=== PATIENT | male | born 1985 | race Hispanic/Latino ===

== ENCOUNTER 2016-09-08 19:58 | Emergency (ER) | payer OTHER ==
[~2016-09-08] VITALS: Ht 172.7 cm; Wt 72.6 kg
[2016-09-08] MEDS ORDERED: ALBU90AE13 INH (20:26)
[2016-09-08] MEDS ORDERED: [UNRECOGNIZED DRUG - CODE] OR (20:27)
[2016-09-08] MEDS ORDERED: ZITHROMAX500 MG OR (20:27)
[2016-09-08] MEDS ORDERED: CREON24000 UNT OR (20:28)
[2016-09-08] MEDS ORDERED: FLONASE AL50 MCG/ACT (20:28)
[2016-09-08] MEDS ORDERED: ALLERGY10 MG PO (20:29)
[2016-09-08] MEDS ORDERED: [UNRECOGNIZED DRUG - OTHER] (20:29)
[2016-09-08] MEDS ORDERED: OMEPRAZOLE40 MG OR (20:30)
[2016-09-08] MEDS ORDERED: TOBI PODHALER28 MG IN (20:31)
== END 2016-09-08 22:10 | disposition home or self-care (01) ==
LOC: ED 19:58
PROC: 0HQLXZZ Repair Left Lower Leg Skin, External Approach (ICD-10-PCS; principal; 2016-09-08)
DX: S81.852A Open bite, left lower leg, initial encounter (principal); W54.0XXA Bitten by dog, initial encounter; Y92.488 Other paved roadways as the place of occurrence of the external cause
CPT/HCPCS: 90715; 99283

== ENCOUNTER 2018-06-19 06:55 | Outpatient (CLI) | payer OTHER ==
[~2018-06-19 06:55] MED LIST: ALBU90AE13 INH; ALLERGY10 MG PO; CREON24000 UNT OR; FLONASE AL50 MCG/ACT; OMEPRAZOLE40 MG OR; TOBI PODHALER28 MG IN; ZITHROMAX500 MG OR; [UNRECOGNIZED DRUG - CODE] OR; [UNRECOGNIZED DRUG - OTHER]
[2018-06-19 10:00] LABS: PLATELET COUNT 147 K/uL (142-355)
[2018-06-19 10:20] LABS: POTASSIUM 4.3 mmol/L (3.6-5.2)
== END 2018-06-19 22:42 | disposition home or self-care (01) ==
LOC: LABW 06:55
DX: E84.0 Cystic fibrosis with pulmonary manifestations (principal)
CPT/HCPCS: 36415; 80053; 82306; 82785; 82951; 82952; 84134; 84443; 84446; 84590; 85027; 85610; 86140

== ENCOUNTER 2018-08-28 12:57 | Outpatient (CLI) | payer OTHER ==
[2018-08-28 13:23] LABS: PLATELET COUNT 184 K/uL (142-355)
[2018-08-28 13:39] LABS: POTASSIUM 4.3 mmol/L (3.6-5.2)
== END 2018-08-28 21:41 | disposition home or self-care (01) ==
LOC: LAB 12:57
PROVIDERS: Internal Medicine Pulmonary Disease
DX: Z79.2 Long term (current) use of antibiotics (principal)
CPT/HCPCS: 80053; 80202; 85027

== ENCOUNTER 2019-01-29 09:59 | Outpatient (CLI) | payer OTHER ==
[2019-01-29 10:26] LABS: PLATELET COUNT 161 K/uL (142-355)
[2019-01-29 10:31] LABS: POTASSIUM 4.3 mmol/L (3.6-5.2)
== END 2019-01-29 20:13 | disposition home or self-care (01) ==
LOC: LAB 09:59
PROVIDERS: Internal Medicine Pulmonary Disease
DX: E84.0 Cystic fibrosis with pulmonary manifestations (principal)
CPT/HCPCS: 80048; 80200; 80202; 85027

== ENCOUNTER 2020-02-22 07:07 | Outpatient (CLI) | payer OTHER ==
[2020-02-22 08:22] LABS: POTASSIUM 4.6 mmol/L (3.6-5.2)
== END 2020-02-22 23:59 | disposition home or self-care (01) ==
LOC: LABW 07:07
PROVIDERS: ATTEND Internal Medicine Pulmonary Disease
DX: E84.9 Cystic fibrosis, unspecified (principal)
CPT/HCPCS: 36415; 80053; 82728; 83540; 83550

== ENCOUNTER 2020-07-01 10:21 | Outpatient (CLI) | payer OTHER | END 2020-07-01 22:05 | disposition home or self-care (01) | LOC: RAD 10:21 | PROVIDERS: ATTEND Internal Medicine Pulmonary Disease | DX: R10.9 Unspecified abdominal pain (principal) ==

== ENCOUNTER 2020-07-02 15:08 | Outpatient (CLI) | payer OTHER ==
[2020-07-02 15:33] LABS: PLATELET COUNT 160 K/uL (142-355)
[2020-07-02 15:43] LABS: POTASSIUM 4.1 mmol/L (3.6-5.2)
== END 2020-07-02 20:33 | disposition home or self-care (01) ==
LOC: LABW 15:08
PROVIDERS: ATTEND Internal Medicine Pulmonary Disease
DX: E84.9 Cystic fibrosis, unspecified (principal)
CPT/HCPCS: 36415; 80053; 82150; 83690; 85027

== ENCOUNTER 2021-03-27 10:02 | Outpatient (CLI) | payer OTHER | END 2021-03-27 20:02 | disposition home or self-care (01) | LOC: LABW 10:02 | PROVIDERS: ATTEND Internal Medicine Pulmonary Disease | DX: E84.9 Cystic fibrosis, unspecified (principal) | CPT/HCPCS: 36415; 80076 ==